=== PATIENT | female | born 1950 | race Caucasian/White ===

== ENCOUNTER → 2018-02-11 | Outpatient (CLI) | payer BC ==
[~2018-02-11] MED LIST: ALAW0.02 EACH EYE; ARTH650T6 PO; ATOR20TA15 PO; FE FCAP PO; FE FCAP2 PO; FOLI1TAB6 PO; FURO1TAB93 PO; HYDR200T3 PO; LEVA750T9 PO; LEVO.1 PO; LISI-363 PO; LISI-515 PO; MELO15 PO; METH2.5T PO; METO5TAB PO; OMEP40CA2 PO; PLAQ200T PO; PRED1SUS EACH EYE; PRED2.5T PO; PROM25TA10 PO; PROM25TA5 PO; PROV10TA PO; REGL5TAB PO; THERSOL2 EACH EYE; TRAM50 PO; TRAM50TA PO
--- NOTE | 2018-02-11 12:16 | EKG ---
Date Performed: 02/11/2018 Time Performed: 10:06:06 PTAGE: 67 years EKG: Sinus rhythm . Inferior infarct - age undetermined Possible anterior infarct - age undetermined Low QRS voltages i n precordial leads Abnormal ECG PREVIOUS TRACING : 04/08/2016 20.41 DOCTOR: Dagoberto Headley Interpretating Date/Time 02/11/2018 12:15:53
== END ==
LOC: HCAV 09:57
PROVIDERS: ATTEND Internal Medicine
DX: Z01.810 Encounter for preprocedural cardiovascular examination (principal)
CPT/HCPCS: 93005

== ENCOUNTER 2018-02-16 12:30 | Inpatient (IN) | payer BC, MEDICARE ==
[~2018-02-16] VITALS: Ht 151.1 cm; Wt 77.9 kg
[~2018-02-16 12:30] MED LIST changes: -ASPI81TA23 PO; -FE FCAP2 PO; -FURO1TAB93 PO; -HYDR200T3 PO; -LEVA750T9 PO; -LISI-363 PO; -MELO15 PO; -METO5TAB PO; -PROM25TA5 PO; -TRAM50 PO
[2018-02-23] MEDS ORDERED: CHLORHEXIDINE GLUCONATE 2 % 1 PACK (2 CLOTHS) TOPICAL PRN (10:45)
[2018-02-23] MEDS ORDERED: SODIUM CHLORID 0.9% 500 ML IV PRN (10:45)
[2018-02-23] MEDS ORDERED: VANCOMYCIN 1000 MG/NS 250 ML (for <70 kg) IV SCH ×2 (10:45)
[2018-02-23] MEDS ORDERED: METOPROLOL TARTRATE 25 MG TAB PO PRN (10:45)
[2018-02-23] MEDS ORDERED: ceFAZolin 2 GM PREMIX 50 ML IV SCH (10:45)
[2018-02-23] MEDS ORDERED: CHLORHEXIDINE GLUCONATE 4% SOLN 120 ML BTL TOPICAL SCH (10:45)
[2018-02-23] MEDS ORDERED: LACTATED RINGER'S 1000 ML IV PRN (10:45)
[2018-02-23] MEDS ORDERED: POVIDONE IODINE 5% (ANTISEPSIS KIT) 4 APPLICATIONS EACH NARE PRN (10:45)
[2018-02-23] MEDS ORDERED: ROPIVACAINE PERI-ARTICULAR INJECTION. P-ARTICULR SCH ×5 (11:00)
[2018-02-23] MEDS ORDERED: BUPIVACAINE LIPOSOME PF 1.3% 20 ML VIAL ONE (11:16)
[2018-02-23 11:34] VITALS: PULSE 79
[2018-02-23] MEDS ORDERED: MIDAZOLAM HCL 2 MG/2 ML VIAL ONE (11:43)
[2018-02-23] MEDS ORDERED: APREPITANT 40 MG CAP ONE (11:43)
[2018-02-23] MEDS ORDERED: FAMOTIDINE 20 MG/2 ML VIAL ONE (11:44)
[2018-02-23] MEDS ORDERED: DEXAMETHASONE SOD PHOS 4 MG/ML VIAL IV ONE (12:00)
[2018-02-23] MEDS ORDERED: ePHEDrine/NS 25 MG/5 ML SYRINGE IV ONE (12:00)
[2018-02-23] MEDS ORDERED: ceFAZolin INJ 1,000 MG VIAL IV ONE ×2 (12:00→14:35)
[2018-02-23] MEDS ORDERED: SUCCINYLCHOLINE CHLORIDE 100 MG/5 ML SYRINGE IV PUSH ONE (12:00)
[2018-02-23] MEDS ORDERED: PROPOFOL 200 MG/20 ML AMP IV ONE (12:00)
[2018-02-23] MEDS ORDERED: LIDOCAINE HCL 1% PF 5 ML SYRINGE OTHER ONE (12:00)
[2018-02-23] MEDS ORDERED: ONDANSETRON HCL 4 MG/2 ML VIAL IV ONE (12:00)
[2018-02-23] MEDS ORDERED: ROCURONIUM INJ 50 MG/5 ML SYRINGE IV PUSH ONE (12:00)
[2018-02-23] MEDS ORDERED: MIDAZOLAM HCL 2 MG/2 ML VIAL IV ONE (12:15)
[2018-02-23] MEDS ORDERED: APREPITANT 40 MG CAP PO SCH (12:15)
[2018-02-23] MEDS ORDERED: FAMOTIDINE 20 MG/2 ML VIAL IV ONE (12:15)
[2018-02-23] MEDS ORDERED: GENTAMICIN SULFATE 80 MG/2 ML VIAL ONE (12:38)
[2018-02-23] MEDS ORDERED: KETAMINE HCL 500 MG/10 ML VIAL ONE (14:25)
[2018-02-23] MEDS ORDERED: DO NOT ADM ANY ANTICOAGULANT DRUGS PRN (15:32)
--- NOTE | 2018-02-23 15:36 | HHI.PR ---
Immediate Post Op Note Procedure Date: February 23, 2018 Pre Op Diagnosis: R Knee OA,Genu Varus Deformity Post Op Diagnosis: Same Surgeon: Emeterio Garrido MD Assurance Officer(s): Elena Lee PA-C Procedure: R TKR Complications: None Specimen(s) removed: None Estimated blood loss: 20cc Anesthesia: General, Regional Block, Local Drains: Hemovac Tourniquet time (min at mmHg) 54 mins @ 250 mmHg Patient to: PACU Patient Condition: Good Implant/Devices: SEE IMPLANT LOG (if applicable) Date/Time of Procedure: SEE SURGICAL CARE RECORD Emeterio Garrido MD February 23, 2018 15:36
[2018-02-23] MEDS ORDERED: ARTIFICIAL TEARS OPTH SOLN 15 ML BTL EACH EYE PRN (15:45)
[2018-02-23] MEDS ORDERED: Post-op Orders (for Pharmacy) XX ONE (15:45)
[2018-02-23] MEDS ORDERED: ZOLPIDEM TARTRATE 5 MG TAB PO PRN (15:45)
[2018-02-23] MEDS ORDERED: ALUMINUM/MAGNESIUM/SIMETH 30 ML CUP PO PRN (15:45)
[2018-02-23] MEDS ORDERED: traMADol HCL 50 MG TAB PO PRN ×2 (15:45)
[2018-02-23] MEDS ORDERED: ONDANSETRON HCL 4 MG/2 ML VIAL IVP PRN (15:45)
[2018-02-23] MEDS ORDERED: HYDROmorphone HCL PF 2 MG/ML VIAL IV PUSH PRN (15:45)
[2018-02-23] MEDS ORDERED: OLOPATADINE HCL 0.1% OPHT SOLN 5 ML BTL EACH EYE PRN (15:45)
[2018-02-23] MEDS ORDERED: prednisoLONE ACETATE 1% OPHT SUSP 5 ML BTL EACH EYE PRN (15:45)
--- NOTE | 2018-02-23 15:48 | MP ---
cc: Emeterio Garrido MD Gilles Fay DATE OF OPERATION: 02/23/2018 PREOPERATIVE DIAGNOSES: 1. Right knee severe tricompartment osteoarthritis. 2. Right knee genu varus deformity. POSTOPERATIVE DIAGNOSES: 1. Right knee severe tricompartment osteoarthritis. 2. Right knee genu varus deformity. PROCEDURE PERFORMED: Right total knee arthroplasty - cemented Bi[employer]-V[employer]. SURGEON: Emeterio Garrido MD TIER IN: Elena Lee PA-C TOURNIQUET TIME: 54 minutes at 250 mmHg. ANESTHESIA: General, adductor canal regional block, intraarticular block. ESTIMATED BLOOD LOSS: 20 mL. DRAIN: One. COMPLICATIONS: None. SPECIMENS: None. My assistant community manager, Elena Lee PA-C, was present for the entire surgical case. She was medically necessary for the entire case because of the complexity of the case and to facilitate the performance of the procedure. The HADOOP SOFTWARE ENGINEER was at the back table and not of skill-set for this case to manipulate the instruments, e.g., the multiple different types of soft tissue retractors, trial implants, and also permanent implants. DESCRIPTION OF PROCEDURE: The patient was brought in the operating room, had satisfactory anesthesia by the Department of Anesthesia. Right lower extremity was prepped and draped in the usual sterile manner. The extremity was exsanguinated by elevation and tourniquet was inflated to 250 mmHg. A small anterior exposure to the knee was made. Paramedian capsulotomy performed. The patient was found to have significant effusion in the knee with chondrocalcinosis and severe tricompartment osteoarthritis with a severe genu varus deformity. The remaining portions of the medial and lateral menisci were removed. The prepatellar fat pad was excised. The anterior cruciate ligament was already deficient. The posterior cruciate ligament was preserved. Using the Biomet-Vanguard total knee arthroplasty system, IM guide was used for the distal femur as a 5 degree valgus cut. This was to accept a 60 femoral component. Extramedullary guide was used for the proximal tibia. This was to accept a 71 tibial component. A 10 mm insert. Appropriate balancing of flexion and extension was performed. It was found to be satisfactory. Undersurface of the patella was removed to accept a 28 mm patellar prosthesis. All trial components were removed and preparation for cementing was made. Two packages of Palacos bone cement was used. First, the tibial component was cemented, which is a 71 tibial component, followed by the femoral component, which is a 60 femoral component, and then a 28 mm 3-prong polyethylene plastic component. All excess bone cement was removed. The bone cement allowed to harden for 11 minutes. The knee was irrigated with 4000 mL of sterile saline antibiotic solution. The knee was injected with 100 mL of local anesthesia provided by the Department of Pharmacy. A 10 x 71 polyethylene plastic "lipped" was then used for the polyethylene plastic with the appropriate clipping mechanism to the tibial tray. Tourniquet was deflated. All bleeders were coagulated. Wound itself was dry. It was closed over a 1/8 inch Hemovac drain. The capsule and the quadriceps mechanism were repaired using multiple interrupted #2 Ti-Cron sutures, subcuticular layers with 0 Vicryl, 2-0 Vicryl, and skin was approximated with skin aashish. Sterile dressings were applied. The patient tolerated the procedure well and went to the recovery room in stable and satisfactory condition. MD ARUNA Martinez/JAKE , 03:26 PM , 03:48 PM
[2018-02-23] MEDS ORDERED: TRAM50TA PO (15:49)
[2018-02-23] MEDS ORDERED: ASPI81TA23 PO (15:50)
[2018-02-23] MEDS ORDERED: WALKER WHEELS/F1 MIS (15:51)
[2018-02-23] MEDS: LACTATED RINGER'S 1000 ML INJ 1,000 ML IV SCH (16:00)
[2018-02-23] MEDS ORDERED: PROMETHAZINE HCL 25 MG TAB PO PRN (16:00)
--- NOTE | 2018-02-23 16:49 | RADRPT ---
EXAM DATE/TIME: 02/23/2018 16:00 [place] COMPARISON: No previous studies available for comparison. INDICATIONS : Post operative right knee. MEDICAL HISTORY : None. SURGICAL HISTORY : None. ENCOUNTER: Initial ACUITY: 1 day PAIN SCORE: Non-responsive. LOCATION: Right Knee. FINDINGS: 3 images have been submitted. There is total knee prosthesis. The prosthetic components appear well-p laced. There is a suprapatellar drain. Air seen in the soft tissues which is not an unexpected findin g following surgery. Skin aashish are seen in the midline. CONCLUSION: Good placement of a total knee prosthesis. Arie Singer MD on February 23, 2018 at 16:46 Board Certified Radiologist. This report was verified electronically.
--- NOTE | 2018-02-23 17:28 | PD.CONS ---
HPI Service [facility] Consult Requested By Primary Care Physician Gilles Fay MD Diagnoses: History of Present Illness Mrs. Rinaldi is a 67-year-old female. She is admitted for a right total knee arthroplasty. She is seen postop and is lethargic and unable to provide much history. Review of past medical records shows a history of lupus and endometrial cancer. No acute complaints are present when seen. She is not nauseous. She has good pain relief. No other complaints when seen. Review of Systems Respiratory: DENIES: Cough, Wheezing, Shortness of breath Cardiovascular: DENIES: Chest pain, Palpitations, Syncope Musculoskeletal: COMPLAINS OF: Joint pain, Muscle aches, Stiffness, Joint Swelling Except as stated in HPI: all other systems reviewed are Neg Past Family Social History Allergies: Coded Allergies: Fish Containing Products (Unverified Allergy, Severe, HIVES, 02/16/18) alcohol (Unverified Allergy, Severe, HIVES, 02/16/18) shellfish derived (Unverified Allergy, Severe, HIVES, 02/16/18) tetanus toxoid, adsorbed (Unverified Allergy, Mild, 02/16/18) hydrocodone (Verified Adverse Reaction, Severe, HALLUCINATIONS, 02/23/18) morphine (Verified Adverse Reaction, Intermediate, SEVERE NAUSEA, 02/23/18) oxycodone (Verified Adverse Reaction, Mild, VOMITING, 02/23/18) Uncoded Allergies: LIQUOR (Allergy, Severe, BODY TURNS RED, 02/16/18) Past Medical History Hypothyroidism Hypertension Gastroparesis Osteoarthritis Lupus History of endometrial cancer Raynaud's disease Varicose veins Sjogrens Disease Past Surgical History Adenoidectomy Reported Medications Reported Meds & Active Scripts Active Aspirin EC (Aspirin) 81 Mg Tabdr 81 Mg PO BID 28 Days Tramadol (Tramadol HCl) 50 Mg Tab 50-100 Mg PO Q6H PRN Reported Phenergan (Promethazine HCl) 25 Mg Tablet 25 Mg PO Q6H PRN Tramadol (Tramadol HCl) 50 Mg Tab 50 Mg PO Q6H PRN Arthritis Pain Reliever ER 8 HR (Acetaminophen) 650 Mg Tab 650 Mg PO Q8HR PRN Theratears Unit-Dose Opth Drops (Carboxymethylcellulose Sodium Opth Drops) 0.25 % Soln 1 Drop EACH EYE Q4H PRN Pred Forte Opth 1% (Prednisolone Acetate Opth 1%) 1% Susp 1 Drop EACH EYE BID PRN [place] Opth Drops (Ketotifen Opth Drops) 0.025% Drops 1 Drop EACH EYE Q6H PRN Atorvastatin (Atorvastatin Calcium) 20 Mg Tab 20 Mg PO HS Folic Acid 1 Mg Tablet 1 Mg PO HS Methotrexate 2.5 Mg Tab 10 Mg PO FRIDAY Integra (Multi-Vit/Iron-B Comp-Vit C) 62.5-62.5-40-3 mg Cap 1 Cap PO DAILY Lisinopril 20 Mg Tab 20 Mg PO DAILY Provera (Medroxyprogesterone Acetate) 10 Mg Tab 20 Mg PO BID Start day 21 Omeprazole 40 Mg Cap 40 Mg PO DAILY Synthroid (Levothyroxine Sodium) 100 Mcg Tab 100 Mcg PO DAILY Prednisone 2.5 Mg Tab 2.5 Mg PO DAILY Plaquenil (Hydroxychloroquine Sulfate) 200 Mg Tab 200 Mg PO BID Take with food Reglan (Metoclopramide HCl) 5 Mg Tab 5 Mg PO BID Active Ordered Medications Administered Medications Medications (Trade) Dose Ordered Sig/Adam Route PRN Reason Start Time Stop Time Status Last Admin Dose Admin Lactated Ringer's 1,000 ml @ 30 mls/hr Q24H PRN IV SEE LABEL COMMENTS 02/23/18 10:45 02/26/18 10:44 02/23/18 11:30 Chlorhexidine Gluconate (Chlorhexidine 2% Cloth) 3 pack MOTOR SETTER PRN TOPICAL SEE LABEL COMMENTS 02/23/18 10:45 02/26/18 10:44 02/23/18 10:50 Chlorhexidine Gluconate (Hibiclens 4% Top Soln) 1 applic ONCE TOPICAL 02/23/18 10:45 02/26/18 10:44 02/23/18 11:15 Vancomycin HCl 1000 mg/Sodium Chloride 250 ml @ 250 mls/hr MOTOR SETTER IV 02/23/18 10:45 02/26/18 10:44 02/23/18 13:09 Fentanyl Citrate (fentaNYL INJ) 50 mcg MOTOR SETTER IV 02/23/18 12:15 02/23/18 23:00 02/23/18 13:10 Lactated Ringer's 1,000 ml @ 80 mls/hr [id number] IV 02/23/18 15:35 02/23/18 16:00 Family History Unable to obtain, patient is lethargic Social History Unable to obtain, patient is lethargic Physical Exam Vital Signs Vital Signs Date Time Temp Pulse Resp B/P (MAP) Pulse Ox O2 Delivery O2 Flow Rate FiO2 02/23/18 16:45 83 13 149/75 (99) 99 02/23/18 16:30 84 13 160/70 (100) 99 02/23/18 16:15 84 17 154/69 (97) 100 02/23/18 16:00 86 17 157/70 (99) 100 02/23/18 15:45 87 14 162/71 (101) 100 Nasal Cannula 2 02/23/18 15:38 97.6 88 18 165/75 (105) 100 Nasal Cannula 2 02/23/18 11:39 98.5 78 20 155/69 (97) 100 02/23/18 11:35 100 Nasal Cannula 2 02/23/18 11:34 79 Physical Exam GENERAL: This is a well-nourished, well-developed patient, in no apparent distress. SKIN: No rashes, ecchymoses or lesions. Cool and dry. HEAD: Atraumatic. Normocephalic. No temporal or scalp tenderness. EYES: Pupils equal round and reactive. Extraocular motions intact. No scleral icterus. No injection or drainage. ENT: Nose without bleeding, purulent drainage or septal hematoma. Throat without erythema, tonsillar hypertrophy or exudate. Uvula midline. Airway patent. NECK: Trachea midline. No JVD or lymphadenopathy. Supple, nontender, no meningeal signs. CARDIOVASCULAR: Regular rate and rhythm without murmurs, gallops, or rubs. RESPIRATORY: Clear to auscultation. Breath sounds equal bilaterally. No wheezes , rales, or rhonchi. GASTROINTESTINAL: Abdomen soft, non-tender, nondistended. No hepato-splenomegaly , or palpable masses. No guarding. MUSCULOSKELETAL: Extremities without clubbing, cyanosis, or edema. No joint tenderness, effusion, or edema noted. No calf tenderness. Negative Homans sign bilaterally. NEUROLOGICAL: Awake and alert. Cranial nerves II through XII intact. Motor and sensory grossly within normal limits. Five out of 5 muscle strength in all muscle groups. Normal speech. Imaging Last Impressions Knee X-Ray 02/23/18 9539 Signed Impressions: Service Date/Time: Friday, February 23, 2018 16:00 - CONCLUSION: Good placement of a total knee prosthesis. Arie Singer MD Assessment and Plan Problem List: (1) Osteoarthritis of right knee ICD Code: M17.11 - Unilateral primary osteoarthritis, right knee Assessment and Plan 67-year-old female status post right knee arthroplasty Status post right knee arthroplasty Osteo-arthritis of right knee Continue pain treatments Orthopedic surgeons following Monitor vital signs Follow H&H in morning Physical therapy Hypertension Continue baseline treatment Follow blood pressures Adjust treatments as needed Hypothyroidism History of endometrial cancer Follows an outpatient Gastroparesis Raynaud's disease Sjogrens Disease Lupus Follow clinically for any exacerbations DVT prophylaxis Per surgical recommendations Problem Qualifiers (1) Osteoarthritis of right knee: Qualified Codes: M17.11 - Unilateral primary osteoarthritis, right knee Zay Houston MD February 23, 2018 17:28
[2018-02-23] MEDS ORDERED: *ONDANSETRON 4 MG VIAL PERIprocedural Use ONLY ONE (18:55)
[2018-02-23 20:35] VITALS: BP 119/58; PULSE 84; RESP 16; TEMP 98.1; O2SAT 100
[2018-02-23] MEDS: HYDROXYCHLOROQUINE SULFATE 200 MG TAB PO SCH (21:00)
[2018-02-23] MEDS: medroxyPROGESTERone ACETATE 10 MG TAB PO SCH (21:00)
[2018-02-23] MEDS: ATORVASTATIN 20 MG TAB PO SCH (21:00)
[2018-02-23] MEDS: METOCLOPRAMIDE HCL 10 MG TAB PO SCH (21:00)
[2018-02-23] MEDS: ACETAMINOPHEN 325 MG TAB PO PRN (23:33)
[2018-02-23] MEDS: ASPIRIN EC 81 MG TABEC PO SCH (23:34)
[2018-02-24] VITALS (7 sets, daily range): BP systolic 121–158; BP diastolic 61–72; PULSE 77–104; RESP 16–18; TEMP 97.6–98.6; O2SAT 90–100
[2018-02-24] MEDS: LACTATED RINGER'S 1000 ML INJ 1,000 ML IV SCH ×2 (04:05→16:35)
[2018-02-24 05:20] LABS: HEMATOCRIT 21.2 % (35.0-46.0); HEMOGLOBIN 7.3 GM/DL (11.6-15.3)
[2018-02-24] MEDS: LEVOTHYROXINE SODIUM 100 MCG TAB PO SCH (06:06)
--- NOTE | 2018-02-24 07:15 | PD.ORT.PN ---
Subjective Subjective Remarks POD # 1 R TKR C/O post op pain No sob;no chest pain Objective Vitals Vital Signs Date Time Temp Pulse Resp B/P (MAP) Pulse Ox O2 Delivery O2 Flow Rate FiO2 02/24/18 00:30 98.1 77 18 158/72 (100) 98 02/23/18 20:35 98.1 84 16 119/58 (78) 100 02/23/18 19:11 78 16 118/58 (78) 100 Nasal Cannula 2 02/23/18 19:00 76 17 118/59 (78) 100 Nasal Cannula 2 02/23/18 18:45 76 14 113/50 (71) 100 Nasal Cannula 2 02/23/18 18:35 97.8 87 22 131/59 (83) 97 Nasal Cannula 2 02/23/18 18:30 77 12 113/50 (71) 100 02/23/18 18:00 78 12 143/57 (85) 99 02/23/18 17:00 81 16 141/66 (91) 99 02/23/18 16:45 83 13 149/75 (99) 99 02/23/18 16:30 84 13 160/70 (100) 99 02/23/18 16:15 84 17 154/69 (97) 100 02/23/18 16:00 86 17 157/70 (99) 100 02/23/18 15:45 87 14 162/71 (101) 100 Nasal Cannula 2 02/23/18 15:38 97.6 88 18 165/75 (105) 100 Nasal Cannula 2 02/23/18 11:39 98.5 78 20 155/69 (97) 100 02/23/18 11:35 100 Nasal Cannula 2 02/23/18 11:34 79 I/O 02/23/18 02/23/18 02/23/18 02/24/18 02/24/18 02/24/18 07:00 15:00 23:00 07:00 15:00 23:00 Intake Total 239 ml Output Total 150 ml Balance 89 ml Intake IV Total 239 ml Output Drainage Total 150 ml Result Diagram: 02/24/18 0355 Imaging Last 24 hours Impressions Knee X-Ray 02/23/18 1535 Signed Impressions: Service Date/Time: Friday, February 23, 2018 16:00 - CONCLUSION: Good placement of a total knee prosthesis. Arie Singer MD Objective Remarks N/V intact Dressings dry No calf tenderness;neg handy's Assessment & Plan Assessment and Plan Ortho stable PT/Rehab Aspirin EC 81 mg BID x 4 weeks for DVT/PE prophylaxsis Eemterio Garrido MD February 24, 2018 07:15
[2018-02-24] MEDS: medroxyPROGESTERone ACETATE 10 MG TAB PO SCH ×2 (08:36→21:50)
[2018-02-24] MEDS: ASPIRIN EC 81 MG TABEC PO SCH ×2 (08:37→21:50)
[2018-02-24] MEDS: PANTOPRAZOLE SOD 40 MG DELAYED RELEASE TAB PO SCH (08:38)
[2018-02-24] MEDS: METOCLOPRAMIDE HCL 10 MG TAB PO SCH ×2 (08:38→21:50)
[2018-02-24] MEDS: ACETAMINOPHEN 325 MG TAB PO PRN (08:39)
--- NOTE | 2018-02-24 09:39 | HHI.PR ---
Subjective Remarks Follow-up for right TKA, anemia, hypertension. Patient reports her right knee pain is bearable for now. She is requesting decreased doses of her tramadol. She wants only 25 mg for mild pain and 50 mg for severe pain. She reports her last bowel movement was 3 days ago on Friday. She is requesting MiraLAX. She states she had an episode last night where she became nauseous, lightheaded , and diaphoretic when she tried to ambulate from bed to the commode, required assistance back to bed. She denies any loss of consciousness. She states she feels back to normal today without any lightheadedness, dizziness, or nausea. Denies any chest pain or shortness of breath. She has no other medical complaints at this time. Objective Vitals Vital Signs Date Time Temp Pulse Resp B/P (MAP) Pulse Ox O2 Delivery O2 Flow Rate FiO2 02/24/18 08:00 98.0 81 16 126/61 (82) 100 02/24/18 04:50 98.0 85 17 121/67 (85) 99 02/24/18 00:30 98.1 77 18 158/72 (100) 98 02/23/18 20:35 98.1 84 16 119/58 (78) 100 02/23/18 19:11 78 16 118/58 (78) 100 Nasal Cannula 2 02/23/18 19:00 76 17 118/59 (78) 100 Nasal Cannula 2 02/23/18 18:45 76 14 113/50 (71) 100 Nasal Cannula 2 02/23/18 18:35 97.8 87 22 131/59 (83) 97 Nasal Cannula 2 02/23/18 18:30 77 12 113/50 (71) 100 02/23/18 18:00 78 12 143/57 (85) 99 02/23/18 17:00 81 16 141/66 (91) 99 02/23/18 16:45 83 13 149/75 (99) 99 02/23/18 16:30 84 13 160/70 (100) 99 02/23/18 16:15 84 17 154/69 (97) 100 02/23/18 16:00 86 17 157/70 (99) 100 02/23/18 15:45 87 14 162/71 (101) 100 Nasal Cannula 2 02/23/18 15:38 97.6 88 18 165/75 (105) 100 Nasal Cannula 2 02/23/18 11:39 98.5 78 20 155/69 (97) 100 02/23/18 11:35 100 Nasal Cannula 2 02/23/18 11:34 79 I/O 02/23/18 02/23/18 02/23/18 02/24/18 02/24/18 02/24/18 07:00 15:00 23:00 07:00 15:00 23:00 Intake Total 239 ml 480 ml Output Total 150 ml Balance 89 ml 480 ml Intake Oral 480 ml IV Total 239 ml Output Drainage Total 150 ml # Voids 1 # Bowel Movements 0 Result Diagram: 02/24/18 0355 Imaging Last Impressions Knee X-Ray 02/23/18 1535 Signed Impressions: Service Date/Time: Friday, February 23, 2018 16:00 - CONCLUSION: Good placement of a total knee prosthesis. Arie Singer MD Objective Remarks GENERAL: Well-nourished, well-developed female patient in [facility]. SKIN: Warm and dry. No rash. HEENT: Normocephalic. Atraumatic. Pupils equal and round. Mucous membranes pink and moist. CARDIOVASCULAR: Regular rate and rhythm. No murmur appreciated. RESPIRATORY: No accessory muscle use. Clear to auscultation. Breath sounds equal bilaterally. GASTROINTESTINAL: Abdomen soft, non-tender, nondistended. Normoactive bowel sounds x4. MUSCULOSKELETAL: No obvious deformities. Extremities without clubbing, cyanosis , or edema. Right knee surgical dressing in place, CDI. NEUROLOGICAL: Awake and alert. No obvious cranial nerve deficits. Motor grossly within normal limits. Moving all extremities spontaneously. Normal speech. PSYCHIATRIC: Appropriate mood and affect; insight and judgment normal. Procedures 02/23/18 right total knee arthroplasty with Dr. Emeterio Garrido Medications and IVs Current Medications Medications (Trade) Dose Ordered Sig/Adam Route Start Time Stop Time Status Last Admin Lactated Ringer's 1,000 ml @ 30 mls/hr Q24H PRN IV 02/23/18 10:45 02/26/18 10:44 02/23/18 11:30 Sodium Chloride 500 ml @ 30 mls/hr [id number] PRN IV 02/23/18 10:45 02/26/18 10:44 (Lopressor) 25 mg ACCOUNT DEVELOPMENT EXECUTIVE PRN PO 02/23/18 10:45 02/26/18 10:44 (Betadine 5% Antisepsis Kit) 1 applic ACCOUNT DEVELOPMENT EXECUTIVE PRN EACH NARE 02/23/18 10:45 02/26/18 10:44 (Chlorhexidine 2% Cloth) 3 pack ACCOUNT DEVELOPMENT EXECUTIVE PRN TOPICAL 02/23/18 10:45 02/26/18 10:44 02/23/18 10:50 (Hibiclens 4% Top Soln) 1 applic ONCE TOPICAL 02/23/18 10:45 02/26/18 10:44 02/23/18 11:15 Cefazolin Sodium/ Dextrose 50 ml @ 100 mls/hr ACCOUNT DEVELOPMENT EXECUTIVE IV 02/23/18 10:45 02/26/18 10:44 Vancomycin HCl 1000 mg/Sodium Chloride 250 ml @ 250 mls/hr ACCOUNT DEVELOPMENT EXECUTIVE IV 02/23/18 10:45 02/26/18 10:44 02/23/18 13:09 (Lipitor) 20 mg HS PO 02/23/18 21:00 (Plaquenil) 200 mg BID PO 02/23/18 21:00 02/24/18 10:04 (Synthroid) 100 mcg DAILY@0600 PO 02/24/18 06:00 02/24/18 06:06 (Prinivil) 20 mg DAILY PO 02/24/18 09:00 02/24/18 10:04 (Provera) 20 mg BID PO 02/23/18 21:00 02/24/18 08:36 (Rheumatrex) 10 mg We PO 02/25/18 09:00 (Pred Forte 1% Opth Susp) 1 drop BID PRN EACH EYE 02/23/18 15:45 (Phenergan) 25 mg Q6H PRN PO 02/23/18 16:00 (Tylenol) 650 mg Q8HR PRN PO 02/23/18 15:45 02/24/18 08:39 (Tears Naturale Opth Soln) 1 drop Q4H PRN EACH EYE 02/23/18 15:45 (Patanol 0.1% Opth) 1 drop BID PRN EACH EYE 02/23/18 15:45 (Reglan) 5 mg BID PO 02/23/18 21:00 02/24/18 08:38 (Theragran) 1 tab DAILY PO 02/24/18 09:00 5/8/18 10:04 (Protonix) 40 mg DAILY PO 02/24/18 09:00 02/24/18 08:38 (Deltasone) 2.5 mg DAILY PO 02/24/18 09:00 02/24/18 10:04 Lactated Ringer's 1,000 ml @ 80 mls/hr [id number] IV 02/23/18 15:35 02/23/18 16:00 (Dilaudid Pf Inj) 1 mg Q3H PRN IV PUSH 02/23/18 15:45 (Ultram) 50 mg Q4H PRN PO 02/23/18 15:45 (Zofran Inj) 4 mg Q6H PRN IVP 02/23/18 15:45 02/23/18 22:30 (Mag-Al Plus Susp Liq) 30 ml Q6H PRN PO 02/23/18 15:45 (Ambien) 5 mg HS PRN PO 02/23/18 15:45 (Ecotrin Ec) 81 mg BID PO 02/23/18 21:00 02/24/18 08:37 ([facility] [place] [facility] ALL NURSING DEPARTME... UNSCH PRN .XX 02/23/18 15:32 02/24/18 15:31 (Ultram) 25 mg Q4H PRN PO 02/24/18 10:00 A/P Problem List: (1) Osteoarthritis of right knee ICD Code: M17.11 - Unilateral primary osteoarthritis, right knee Assessment and Plan 67-year-old female status post right knee arthroplasty. Hospitalist consulted for medical management. Osteoarthritis status post right total knee arthroplasty: surgery done on 02/[address] Emeterio Garrido. Continue pain control with Tramadol prn Orthopedic surgeons following Monitor vital signs Physical therapy DVT prophylaxis per ortho, on aspirin 81mg bid Anemia: Hgb 7.3 today. Patient reports long history of chronic anemia. Drop likely secondary to surgery. Records reviewed, patient had iron studies in 2008 indicating chronic iron deficiency. check iron studies, ferritin, folate, B12 Repeat CBC in am start on ferrous sulfate bid Hypertension Continue home meds including lisinopril 20mg daily Follow blood pressures, Adjust treatments as needed Hypothyroidism History of endometrial cancer Chronic, stable. Continue outpatient f/up. Gastroparesis Raynaud's disease Sjogrens Disease Lupus Follow clinically for any exacerbations Restart home meds. DVT prophylaxis Per surgical recommendations Problem Qualifiers (1) Osteoarthritis of right knee: Qualified Codes: M17.11 - Unilateral primary osteoarthritis, right knee Sally Payan PA-C February 24, 2018 9:38 am
[2018-02-24] MEDS: MULTIVITAMIN TAB PO SCH (10:04)
[2018-02-24] MEDS: HYDROXYCHLOROQUINE SULFATE 200 MG TAB PO SCH ×2 (10:04→21:50)
[2018-02-24] MEDS: LISINOPRIL 20 MG TAB PO SCH (10:04)
[2018-02-24] MEDS: predniSONE 5 MG TAB PO SCH (10:04)
[2018-02-24] MEDS: POLYETHYLENE GLYCOL 17 GM PKG PO SCH (14:19)
[2018-02-24] MEDS: FERROUS SULFATE 325 MG (65 MG ELEMENTAL IRON) TAB PO SCH ×2 (14:19→22:00)
[2018-02-24 14:24] LABS: IRON (FE) 11 MCG/DL (50-170)
[2018-02-24 14:50] LABS: % SATURATION IRON PROFILE 5.1 % (20-50); FERRITIN 236 NG/ML (8-252); TOTAL IRON BINDING CAPACITY 216 MCG/DL (250-450)
[2018-02-24 14:55] LABS: FOLATE GREATER THAN 20.0 NG/ML (3.1-17.5)
[2018-02-24] MEDS: traMADol HCL 50 MG TAB PO PRN ×2 (17:25→21:50)
[2018-02-24 18:40] LABS: AUTOMATED NEUTROPHIL # 7.9 TH/MM3 (1.8-7.7); BASOPHIL % 0.3 % (0.0-2.0); EOSINOPHIL % 0.5 % (0.0-4.0); HEMOGLOBIN 7.7 GM/DL (11.6-15.3); LYMPH % 2.9 % (9.0-44.0); LYMPHOCYTE # 0.3 TH/MM3 (1.0-4.8); MEAN CELL VOLUME 91.4 FL (80.0-100.0); MEAN CORPUSCULAR HEMOGLOBIN 31.9 PG (27.0-34.0); MEAN CORPUSCULAR HGB CONC 34.9 % (32.0-36.0); MEAN PLATELET VOLUME 7.6 FL (7.0-11.0); MONO % 10.7 % (0.0-8.0); NEUT % 85.6 % (16.0-70.0); PLATELET COUNT 228 TH/MM3 (150-450); RED CELL DISTRIBUTION WIDTH 14.9 % (11.6-17.2); WHITE BLOOD COUNT 9.2 TH/MM3 (4.0-11.0)
[2018-02-24 18:53] LABS: BICARBONATE 20.9 MEQ/L (21.0-32.0); CALCIUM 8.4 MG/DL (8.5-10.1)
[2018-02-24] MEDS: ATORVASTATIN 20 MG TAB PO SCH (21:50)
[2018-02-25] VITALS (10 sets, daily range): BP systolic 98–143; BP diastolic 54–72; PULSE 75–98; RESP 17–18; TEMP 97.6–99.4; O2SAT 98–100
[2018-02-25] MEDS: ACETAMINOPHEN 325 MG TAB PO PRN ×2 (03:54→13:40)
[2018-02-25] MEDS: LACTATED RINGER'S 1000 ML INJ 1,000 ML IV SCH ×2 (05:05→17:35)
[2018-02-25] MEDS: LEVOTHYROXINE SODIUM 100 MCG TAB PO SCH (06:14)
--- NOTE | 2018-02-25 07:23 | PD.ORT.PN ---
Subjective Subjective Remarks pt is doing well with the knee does complain of constipation and requesting milk of magnesia and glycerin supp. hx of anemia pre-op, denies any lightheadedness, dizziness Objective Vitals Vital Signs Date Time Temp Pulse Resp B/P (MAP) Pulse Ox O2 Delivery O2 Flow Rate FiO2 02/25/18 00:30 99.4 98 18 121/72 (88) 99 02/24/18 20:15 97.9 104 18 152/72 (98) 93 02/24/18 16:00 97.6 95 16 142/70 (94) 02/24/18 12:00 98.6 91 16 123/69 (87) 94 02/24/18 10:24 90 Nasal Cannula 2.00 02/24/18 08:00 98.0 81 16 126/61 (82) 100 I/O 02/24/18 02/24/18 02/24/18 02/25/18 02/25/18 02/25/18 07:00 15:00 23:00 07:00 15:00 23:00 Intake Total 580 ml 600 ml 480 ml Balance 580 ml 600 ml 480 ml Intake Oral 480 ml 600 ml 480 ml IV Total 100 ml # Voids 1 3 3 # Bowel Movements 0 0 Result Diagram: 02/24/18 1730 02/24/18 1730 Imaging Last 24 hours Impressions Knee X-Ray 02/23/18 1535 Signed Impressions: Service Date/Time: Friday, February 23, 2018 16:00 - CONCLUSION: Good placement of a total knee prosthesis. Arie Singer MD Objective Remarks right knee dressing dry and intact N/V intact No calf tenderness;neg handy's Assessment & Plan Assessment and Plan POD # 2 s/p R TKA Ortho stable PT/Rehab Milk of magnesia and glycerin supp written for patient Aspirin EC 81 mg BID x 4 weeks for DVT/PE prophylaxsis anticipate d/c today to [facility] if accepted or possibly [facility] if labs stable- pending at this time Elena Lee February 25, 2018 07:23
[2018-02-25] MEDS ORDERED: GLYCERIN ADULT 2 GM SUPP RECTAL PRN (07:30)
[2018-02-25] MEDS ORDERED: MAGNESIUM HYDROXIDE SUSP 30 ML CUP PO PRN (07:30)
[2018-02-25 08:01] LABS: AUTOMATED NEUTROPHIL # 5.9 TH/MM3 (1.8-7.7); BASOPHIL # 0.1 TH/MM3 (0-0.2); BASOPHIL % 0.7 % (0.0-2.0); EOSINOPHIL # 0.1 TH/MM3 (0-0.4); LYMPH % 5.4 % (9.0-44.0); LYMPHOCYTE # 0.4 TH/MM3 (1.0-4.8); MEAN CELL VOLUME 90.5 FL (80.0-100.0); MEAN CORPUSCULAR HEMOGLOBIN 30.6 PG (27.0-34.0); MEAN CORPUSCULAR HGB CONC 33.8 % (32.0-36.0); MEAN PLATELET VOLUME 7.4 FL (7.0-11.0); MONO % 14.6 % (0.0-8.0); MONOCYTE # 1.1 TH/MM3 (0-0.9); NEUT % 78.3 % (16.0-70.0); PLATELET COUNT 208 TH/MM3 (150-450); RED BLOOD COUNT 2.17 MIL/MM3 (4.00-5.30); RED CELL DISTRIBUTION WIDTH 14.6 % (11.6-17.2); WHITE BLOOD COUNT 7.6 TH/MM3 (4.0-11.0)
[2018-02-25 08:13] LABS: HEMOGLOBIN 6.6 GM/DL (11.6-15.3)
[2018-02-25 08:14] LABS: HEMATOCRIT 19.6 % (35.0-46.0)
[2018-02-25 08:25] LABS: BICARBONATE 21.9 MEQ/L (21.0-32.0); CALCIUM 7.9 MG/DL (8.5-10.1); CREATININE 0.9 MG/DL (0.50-1.00)
[2018-02-25] MEDS ORDERED: SODIUM CHLOR 0.9% 250 ML INJ 250 ML IV ONE (08:30)
[2018-02-25] MEDS: METOCLOPRAMIDE HCL 10 MG TAB PO SCH ×2 (08:55→19:59)
[2018-02-25] MEDS: PANTOPRAZOLE SOD 40 MG DELAYED RELEASE TAB PO SCH (08:55)
[2018-02-25] MEDS: MULTIVITAMIN TAB PO SCH (08:55)
[2018-02-25] MEDS: ASPIRIN EC 81 MG TABEC PO SCH ×2 (08:55→20:00)
[2018-02-25] MEDS ORDERED: METHOTREXATE 2.5 MG TAB PO SCH (09:00)
--- NOTE | 2018-02-25 09:30 | HHI.PR ---
Subjective Remarks Follow up for right TKA, anemia, HTN. The patient reports pain is improved today. Hgb dropped to 6.6 today. Patient denies any lightheadedness, dizziness, chest pain, or shortness of breath. Still no BM since a few days ago, prior to surgery. Denies any abdominal pain, nausea/vomiting. Tolerating oral intake. Vital signs reviewed and stable. Objective Vitals Vital Signs Date Time Temp Pulse Resp B/P (MAP) Pulse Ox O2 Delivery O2 Flow Rate FiO2 02/25/18 08:00 97.9 88 17 115/65 (82) 99 02/25/18 00:30 99.4 98 18 121/72 (88) 99 02/24/18 20:15 97.9 104 18 152/72 (98) 93 02/24/18 16:00 97.6 95 16 142/70 (94) 02/24/18 12:00 98.6 91 16 123/69 (87) 94 02/24/18 10:24 90 Nasal Cannula 2.00 I/O 02/24/18 02/24/18 02/24/18 02/25/18 02/25/18 02/25/18 06:59 14:59 22:59 06:59 14:59 22:59 Intake Total 680 ml 600 ml 480 ml Balance 680 ml 600 ml 480 ml Intake Oral 480 ml 600 ml 480 ml IV Total 200 ml # Voids 1 3 3 # Bowel Movements 0 0 Result Diagram: 02/25/18 0700 02/25/18 0700 Imaging Last Impressions Knee X-Ray 02/23/18 1535 Signed Impressions: Service Date/Time: Friday, February 23, 2018 16:00 - CONCLUSION: Good placement of a total knee prosthesis. Arie Singer MD Objective Remarks GENERAL: Well-nourished, well-developed female patient in [facility]. SKIN: Warm and dry. No rash. HEENT: Normocephalic. Atraumatic. Pupils equal and round. Mucous membranes pink and moist. CARDIOVASCULAR: Regular rate and rhythm. No murmur appreciated. RESPIRATORY: No accessory muscle use. Clear to auscultation. Breath sounds equal bilaterally. GASTROINTESTINAL: Abdomen soft, non-tender, nondistended. Normoactive bowel sounds x4. MUSCULOSKELETAL: No obvious deformities. Extremities without clubbing, cyanosis , or edema. Right knee surgical dressing in place, CDI. NEUROLOGICAL: Awake and alert. No obvious cranial nerve deficits. Motor grossly within normal limits. Moving all extremities spontaneously. Normal speech. PSYCHIATRIC: Appropriate mood and affect; insight and judgment normal. Procedures 02/23/18 right total knee arthroplasty with Dr. Emeterio Garrido Medications and IVs Current Medications Medications (Trade) Dose Ordered Sig/Adam Route Start Time Stop Time Status Last Admin Lactated Ringer's 1,000 ml @ 30 mls/hr Q24H PRN IV 02/23/18 10:45 02/26/18 10:44 02/23/18 11:30 Sodium Chloride 500 ml @ 30 mls/hr [id number] PRN IV 02/23/18 10:45 02/26/18 10:44 (Lopressor) 25 mg [facility] PRN PO 02/23/18 10:45 02/26/18 10:44 (Betadine 5% Antisepsis Kit) 1 applic [facility] PRN EACH NARE 02/23/18 10:45 02/26/18 10:44 (Chlorhexidine 2% Cloth) 3 pack [facility] PRN TOPICAL 02/23/18 10:45 02/26/18 10:44 02/23/18 10:50 (Hibiclens 4% Top Soln) 1 applic ONCE TOPICAL 02/23/18 10:45 02/26/18 10:44 02/23/18 11:15 Cefazolin Sodium/ Dextrose 50 ml @ 100 mls/hr [facility] IV 02/23/18 10:45 02/26/18 10:44 Vancomycin HCl 1000 mg/Sodium Chloride 250 ml @ 250 mls/hr [facility] IV 02/23/18 10:45 02/26/18 10:44 02/23/18 13:09 (Lipitor) 20 mg HS PO 02/23/18 21:00 02/24/18 21:50 (Plaquenil) 200 mg BID PO 02/23/18 21:00 02/24/18 21:50 (Synthroid) 100 mcg DAILY@0600 PO 02/24/18 06:00 02/25/18 06:14 (Prinivil) 20 mg DAILY PO 02/24/18 09:00 02/24/18 10:04 (Provera) 20 mg BID PO 02/23/18 21:00 02/24/18 21:50 (Rheumatrex) 10 mg We PO 02/25/18 09:00 (Pred Forte 1% Opth Susp) 1 drop BID PRN EACH EYE 02/23/18 15:45 (Phenergan) 25 mg Q6H PRN PO 02/23/18 16:00 (Tylenol) 650 mg Q8HR PRN PO 02/23/18 15:45 02/25/18 03:54 (Tears Naturale Opth Soln) 1 drop Q4H PRN EACH EYE 02/23/18 15:45 (Patanol 0.1% Opth) 1 drop BID PRN EACH EYE 02/23/18 15:45 (Reglan) 5 mg BID PO 02/23/18 21:00 02/25/18 08:55 (Theragran) 1 tab DAILY PO 02/24/18 09:00 02/25/18 08:55 (Protonix) 40 mg DAILY PO 02/24/18 09:00 02/25/18 08:55 (Deltasone) 2.5 mg DAILY PO 02/24/18 09:00 02/24/18 10:04 Lactated Ringer's 1,000 ml @ 80 mls/hr [id number] IV 02/23/18 15:35 02/23/18 16:00 (Dilaudid Pf Inj) 1 mg Q3H PRN IV PUSH 02/23/18 15:45 (Ultram) 50 mg Q4H PRN PO 02/23/18 15:45 (Zofran Inj) 4 mg Q6H PRN IVP 02/23/18 15:45 02/23/18 22:30 (Mag-Al Plus Susp Liq) 30 ml Q6H PRN PO 02/23/18 15:45 (Ambien) 5 mg HS PRN PO 02/23/18 15:45 (Ecotrin Ec) 81 mg BID PO 02/23/18 21:00 02/25/18 08:55 (Ultram) 25 mg Q4H PRN PO 02/24/18 10:00 02/24/18 21:50 (Miralax) 17 gm DAILY PO 02/24/18 11:00 02/24/18 14:19 (Ferrous Sulfate) 325 mg BID@12,17 PO 02/24/18 12:00 02/24/18 22:00 (Milk Of Magnesia Liq) 30 ml DAILY PRN PO 02/25/18 07:30 (Glycerin Adult Supp) 2 gm ONCE PRN RECTAL 02/25/18 07:30 02/25/18 23:00 Sodium Chloride 250 ml @ 15 mls/hr ONCE ONCE IV 02/25/18 08:30 02/26/18 01:09 A/P Problem List: (1) Osteoarthritis of right knee ICD Code: M17.11 - Unilateral primary osteoarthritis, right knee Assessment and Plan 67-year-old female status post right knee arthroplasty. Hospitalist consulted for medical management. Osteoarthritis status post right total knee arthroplasty: surgery done on 02/[address] Emeterio Garrido. Continue pain control with Tramadol prn Orthopedic surgeons following Monitor vital signs Physical therapy DVT prophylaxis per ortho, on aspirin 81mg bid Anemia: Hgb 7.3. Patient reports long history of chronic anemia. Drop likely secondary to surgery. Records reviewed, patient had iron studies in 2008 indicating chronic iron deficiency. iron studies consistent with chronic check iron deficiency anemia, B12 and folate wnl. started on ferrous sulfate bid Hgb dropped to 6.6 today, will give 2u pRBC transfusion repeat CBC in the am Hypertension Continue home meds including lisinopril 20mg daily Follow blood pressures, Adjust treatments as needed Hypothyroidism History of endometrial cancer Chronic, stable. Continue outpatient f/up. Gastroparesis Raynaud's disease Sjogrens Disease Lupus Follow clinically for any exacerbations Restart home meds. DVT prophylaxis Per surgical recommendations Discharge Planning Can likely medically clear for discharge tomorrow if Hgb improves. Problem Qualifiers (1) Osteoarthritis of right knee: Qualified Codes: M17.11 - Unilateral primary osteoarthritis, right knee Sally Payan PA-C February 25, 2018 9:30 am
[2018-02-25] MEDS: LISINOPRIL 20 MG TAB PO SCH (09:53)
[2018-02-25] MEDS: predniSONE 5 MG TAB PO SCH (09:53)
[2018-02-25] MEDS: POLYETHYLENE GLYCOL 17 GM PKG PO SCH (09:53)
[2018-02-25] MEDS: HYDROXYCHLOROQUINE SULFATE 200 MG TAB PO SCH ×2 (09:53→19:59)
[2018-02-25] MEDS: medroxyPROGESTERone ACETATE 10 MG TAB PO SCH ×2 (09:53→20:00)
[2018-02-25] MEDS: FERROUS SULFATE 325 MG (65 MG ELEMENTAL IRON) TAB PO SCH ×2 (13:40→17:00)
[2018-02-25] MEDS: traMADol HCL 50 MG TAB PO PRN (19:59)
[2018-02-25] MEDS: ATORVASTATIN 20 MG TAB PO SCH (20:00)
[2018-02-26] VITALS: BP 145/66; PULSE 93; RESP 19; TEMP 98.1; O2SAT 99
[2018-02-26] MEDS: traMADol HCL 50 MG TAB PO PRN ×2 (01:39→14:15)
[2018-02-26 04:00] VITALS: BP 107/69; PULSE 79; RESP 19; TEMP 97.9; O2SAT 98
[2018-02-26 05:15] LABS: AUTOMATED NEUTROPHIL # 7.5 TH/MM3 (1.8-7.7); BASOPHIL % 0.3 % (0.0-2.0); EOSINOPHIL # 0.1 TH/MM3 (0-0.4); EOSINOPHIL % 0.7 % (0.0-4.0); HEMOGLOBIN 10.3 GM/DL (11.6-15.3); LYMPH % 4.1 % (9.0-44.0); LYMPHOCYTE # 0.4 TH/MM3 (1.0-4.8); MEAN CELL VOLUME 87.1 FL (80.0-100.0); MEAN CORPUSCULAR HEMOGLOBIN 30.1 PG (27.0-34.0); MEAN CORPUSCULAR HGB CONC 34.5 % (32.0-36.0); MEAN PLATELET VOLUME 7.2 FL (7.0-11.0); MONO % 13.8 % (0.0-8.0); MONOCYTE # 1.3 TH/MM3 (0-0.9); NEUT % 81.1 % (16.0-70.0); PLATELET COUNT 219 TH/MM3 (150-450); RED BLOOD COUNT 3.44 MIL/MM3 (4.00-5.30); RED CELL DISTRIBUTION WIDTH 14.9 % (11.6-17.2); WHITE BLOOD COUNT 9.3 TH/MM3 (4.0-11.0)
[2018-02-26 05:37] LABS: BICARBONATE 24.2 MEQ/L (21.0-32.0); CALCIUM 8.5 MG/DL (8.5-10.1); CREATININE 0.92 MG/DL (0.50-1.00)
[2018-02-26] MEDS: LEVOTHYROXINE SODIUM 100 MCG TAB PO SCH (06:22)
[2018-02-26 08:00] VITALS: BP 138/72; PULSE 85; RESP 18; TEMP 97.8; O2SAT 97
[2018-02-26] MEDS: METOCLOPRAMIDE HCL 10 MG TAB PO SCH (08:48)
[2018-02-26] MEDS: HYDROXYCHLOROQUINE SULFATE 200 MG TAB PO SCH (08:48)
[2018-02-26] MEDS: PANTOPRAZOLE SOD 40 MG DELAYED RELEASE TAB PO SCH (08:48)
[2018-02-26] MEDS: predniSONE 5 MG TAB PO SCH (08:48)
[2018-02-26] MEDS: ASPIRIN EC 81 MG TABEC PO SCH (08:48)
[2018-02-26] MEDS: MULTIVITAMIN TAB PO SCH (08:48)
[2018-02-26] MEDS: medroxyPROGESTERone ACETATE 10 MG TAB PO SCH (08:49)
[2018-02-26] MEDS: POLYETHYLENE GLYCOL 17 GM PKG PO SCH (08:52)
[2018-02-26] MEDS: LACTATED RINGER'S 1000 ML INJ 1,000 ML IV SCH (08:53)
--- NOTE | 2018-02-26 10:08 | HHI.PR ---
Subjective Remarks Patient reports no complaints. Overall pain control. Prefers to go to [facility]. Eating well. Objective Vitals Vital Signs Date Time Temp Pulse Resp B/P (MAP) Pulse Ox O2 Delivery O2 Flow Rate FiO2 02/26/18 08:52 20 02/26/18 08:00 97.8 85 18 138/72 (94) 97 02/26/18 04:00 97.9 79 19 107/69 (82) 98 02/26/18 00:00 98.1 93 19 145/66 (92) 99 02/25/18 20:00 98.0 82 18 132/65 (87) 99 02/25/18 17:08 98.7 80 18 98/54 98 02/25/18 16:53 98.9 75 18 108/59 98 02/25/18 16:13 98.6 88 18 108/55 98 02/25/18 16:00 97.9 87 17 119/63 (81) 100 02/25/18 13:15 98.0 94 18 141/64 99 02/25/18 12:54 97.6 89 17 143/68 100 02/25/18 12:00 97.6 89 17 143/68 (93) 100 I/O 02/25/18 02/25/18 02/25/18 02/26/18 02/26/18 02/26/18 06:59 14:59 22:59 06:59 14:59 22:59 Intake Total 480 ml 1285 ml 900 ml Balance 480 ml 1285 ml 900 ml Intake Oral 480 ml 480 ml 900 ml Packed Cells 800 ml Blood Product IV Normal Saline Flush 5 ml # Voids 3 5 4 # Bowel Movements 0 2 Result Diagram: 02/26/18 0437 02/26/18 0437 Objective Remarks GENERAL: This is a well-nourished, well-developed patient, in no apparent distress. CARDIOVASCULAR: Regular rate and rhythm RESPIRATORY: Clear to auscultation. Breath sounds equal bilaterally. No wheezes , rales, or rhonchi. MUSCULOSKELETAL: Extremities without clubbing, cyanosis, or edema. right knee bandage c/d/i NEURO: Alert & Oriented x4 to person, place, time, situation. Procedures 02/23/18 right total knee arthroplasty with Dr. Emeterio Garrido A/P Problem List: (1) Osteoarthritis of right knee ICD Code: M17.11 - Unilateral primary osteoarthritis, right knee Assessment and Plan 67-year-old female status post right knee arthroplasty. Osteoarthritis status post op day # 3 right total knee arthroplasty (surgery done on 02/[address] Emeterio Garrido). Continue pain control with Tramadol prn Continue Physical therapy DVT prophylaxis per ortho who ordered aspirin 81mg bid Acute on chronic anemia due to acute blood loss from surgery: Patient reports long history of chronic anemia. Drop likely secondary to blood loss from surgery. Patient had iron studies in 2008 indicating chronic iron deficiency. Started on ferrous sulfate bid Hgb dropped yesterday to 6.6 s/p 2u pRBC transfusion with repeat hemoglobin 10.3. Stable. Hypertension, essential chronic Continue home medications including lisinopril 20mg daily, overall controlled. Hypothyroidism -continue Synthroid. history of endometrial cancer Chronic, stable. Continue outpatient f/up. History of gastroparesisresume home Reglan History of Raynaud's disease and Sjogrens Disease Lupus Follow clinically for any exacerbations Restart home meds, prednisone and Plaquenil. DVT prophylaxis Per orthopedics recommendations Discharge Planning Patient prefers [facility]. Anticipate halfway facility discharge. Problem Qualifiers (1) Osteoarthritis of right knee: Qualified Codes: M17.11 - Unilateral primary osteoarthritis, right knee Johanna Azul MD February 26, 2018 10:08
[2018-02-26 12:00] VITALS: BP 137/80; PULSE 90; RESP 18; TEMP 98.4; O2SAT 99
--- NOTE | 2018-02-26 13:26 | PD.ORT.PN ---
Subjective Subjective Remarks POD # 3 R TKR C/O post op pain No sob;no chest pain Patient ready to go to rehab today Objective Vitals Vital Signs Date Time Temp Pulse Resp B/P (MAP) Pulse Ox O2 Delivery O2 Flow Rate FiO2 02/26/18 08:52 20 02/26/18 08:00 97.8 85 18 138/72 (94) 97 02/26/18 04:00 97.9 79 19 107/69 (82) 98 02/26/18 00:00 98.1 93 19 145/66 (92) 99 02/25/18 20:00 98.0 82 18 132/65 (87) 99 02/25/18 17:08 98.7 80 18 98/54 98 02/25/18 16:53 98.9 75 18 108/59 98 02/25/18 16:13 98.6 88 18 108/55 98 02/25/18 16:00 97.9 87 17 119/63 (81) 100 I/O 02/25/18 02/25/18 02/25/18 02/26/18 02/26/18 02/26/18 07:00 15:00 23:00 07:00 15:00 23:00 Intake Total 480 ml 1285 ml 900 ml Balance 480 ml 1285 ml 900 ml Intake Oral 480 ml 480 ml 900 ml Packed Cells 800 ml Blood Product IV Normal Saline Flush 5 ml # Voids 3 5 4 # Bowel Movements 0 2 Result Diagram: 02/26/18 0437 02/26/18 0437 Imaging Last 24 hours Impressions Knee X-Ray 02/23/18 1535 Signed Impressions: Service Date/Time: Friday, February 23, 2018 16:00 - CONCLUSION: Good placement of a total knee prosthesis. Arie Singer MD Objective Remarks right knee dressing dry and intact N/V intact No calf tenderness;neg handy's Assessment & Plan Assessment and Plan POD # 3 s/p R TKA Ortho stable PT/Rehab Milk of magnesia and glycerin supp written for patient Aspirin EC 81 mg BID x 4 weeks for DVT/PE prophylaxsis D/C to SNF today for continued rehab Emeterio Garrido MD February 26, 2018 13:26
[2018-02-26] MEDS: FERROUS SULFATE 325 MG (65 MG ELEMENTAL IRON) TAB PO SCH (14:13)
== END 2018-02-26 18:08 | DRG 470 ==
LOC: HSDI 02-23 10:03 → N06A 02-23 19:26
PROVIDERS: ADMIT Orthopaedic Surgery Orthopaedic Surgery of the Spine; ATTEND Orthopaedic Surgery Orthopaedic Surgery of the Spine
PROC: 3E0T3BZ Introduction of Anesthetic Agent into Peripheral Nerves and Plexi, Percutaneous Approach (ICD-10-PCS; 2018-02-23)
PROC: 30233N1 Transfusion of Nonautologous Red Blood Cells into Peripheral Vein, Percutaneous Approach (ICD-10-PCS; 2018-02-23)
PROC: 0SRC0J9 Replacement of Right Knee Joint with Synthetic Substitute, Cemented, Open Approach (ICD-10-PCS; principal; 2018-02-23 13:21)
DX: M17.11 Unilateral primary osteoarthritis, right knee (principal); D62 Acute posthemorrhagic anemia; I10 Essential (primary) hypertension; K31.84 Gastroparesis; E03.9 Hypothyroidism, unspecified; M11.261 Other chondrocalcinosis, right knee; M21.161 Varus deformity, not elsewhere classified, right knee; Z85.42 Personal history of malignant neoplasm of other parts of uterus; M19.90 Unspecified osteoarthritis, unspecified site; I73.00 Raynaud's syndrome without gangrene; I83.90 Asymptomatic varicose veins of unspecified lower extremity; M35.00 Sjogren syndrome, unspecified; K59.00 Constipation, unspecified; Z79.899 Other long term (current) drug therapy
CPT/HCPCS: 36415; 36430; 73560; 80048; 82607; 82728; 82746; 83540; 83550; 85014; 85018; 85025; 86850; 86900; 86901; 86920; 94150; C1776; C9290; J0330; J0690; J0735; J1100; J1580; J1885; J2250; J2405; J2795; J3010; J3370; J7050; J7120; J7512; J8501; L1830; P9016

== ENCOUNTER → 2018-02-16 | Outpatient (CLI) | payer BC ==
[~2018-02-16] MED LIST changes: +ASPI81TA23 PO
== END ==
LOC: CPRE 09:01
PROVIDERS: ATTEND Orthopaedic Surgery Orthopaedic Surgery of the Spine
DX: M17.11 Unilateral primary osteoarthritis, right knee (principal)

== ENCOUNTER 2018-03-29 08:44 | Emergency (ER) | payer BC, MEDICARE ==
[~2018-03-29] VITALS: Ht 149.9 cm; Wt 75.0 kg
[~2018-03-29 08:44] MED LIST changes: +ASPI81TA23 PO; +WALKER WHEELS/F1 MIS
[2018-03-29 08:46] VITALS: BP 152/81; PULSE 114; RESP 16; TEMP 98; O2SAT 95
[2018-03-29] MEDS ORDERED: SYNT112T PO (09:02)
[2018-03-29] MEDS ORDERED: SODIUM CHLOR 0.9% 1000 ML INJ 1,000 ML IV SCH (09:17)
--- NOTE | 2018-03-29 09:19 | PD ---
HPI Chief Complaint: Abdominal Pain Time Seen by Provider: 09:17 Travel History International Travel<30 days: No Contact w/Intl Traveler<30days: No Traveled to known affect area: No History of Present Illness HPI Patient comes in complaining of left lower quadrant abdominal pain, crampy, 8 out of 10, associated with diarrhea, has been ongoing for the past 10 days. No alleviating factors, aggravated by eating. Patient denies any associated factors such as fever, rash, headache, chest pain, flank pain, hematuria/urgency /dysuria/presently. Patient states allergy to hydrocodone morphine and oxycodone Past medical history significant for hypothyroid, adenoidectomy, full dentures, gastroparesis, hypertension, 1, rheumatoid arthritis, right knee arthroscopy, lupus, Sjogren's, rating on, anemia, endometrial CA history, PFSH Past Medical History Anemia: Yes Arthritis: Yes Autoimmune Disease: Yes (LUPUS, SOGJOURNS) Blood Disorders: No Anxiety: No Depression: No Heart Rhythm Problems: No Cancer: Yes (ENDOMETRIAL CA) Cardiovascular Problems: Yes ( MURMUR) High Cholesterol: No Congestive Heart Failure: No Diabetes: No Diminished Hearing: No Endocrine: No Gastrointestinal Disorders: Yes (GASTROPARESIS) GERD: Yes Genitourinary: No Hepatitis: No Hiatal Hernia: No Hypertension: Yes (BORDERLINE) Immune Disorder: Yes (LUPUS) Medical other: Yes (VARICOSE VEINS, RAYNAUDS, SJOGRENS DISEASE) Musculoskeletal: Yes (OA) Neurologic: No Psychiatric: No Reproductive: No Respiratory: No Myocardial Infarction: No Thyroid Disease: Yes Tetanus Vaccination: Never Vaccinated Influenza Vaccination: No ?: Not Menopausal: Yes Past Surgical History Abdominal Surgery: No AICD: No Cardiac Surgery: No Section: Yes (x1) Endocrine Surgery: No Eye Surgery: No Genitourinary Surgery: No Gynecologic Surgery: Yes ( 1985) Joint Replacement: No Oral Surgery: Yes (I/D NECK) Pacemaker: No Thoracic Surgery: No Tonsillectomy: Yes (ADENOIDECTOMY) Other Surgery: Yes Social History Alcohol Use: No Tobacco Use: No Substance Use: No Allergies-Medications (Allergen,Severity, Reaction): Coded Allergies: Fish Containing Products (Unverified Allergy, Severe, HIVES, 03/29/18) alcohol (Unverified Allergy, Severe, HIVES, 03/29/18) shellfish derived (Unverified Allergy, Severe, HIVES, 03/29/18) tetanus toxoid, adsorbed (Unverified Allergy, Mild, 03/29/18) hydrocodone (Verified Adverse Reaction, Severe, HALLUCINATIONS, 03/29/18) morphine (Verified Adverse Reaction, Intermediate, SEVERE NAUSEA, 03/29/18) oxycodone (Verified Adverse Reaction, Mild, VOMITING, 03/29/18) Uncoded Allergies: LIQUOR (Allergy, Severe, BODY TURNS RED, 02/16/18) Reported Meds & Prescriptions Reported Meds & Active Scripts Active Walker with Front Wheels (Device) 1 Mis Mis Ea .XX DIRECTED Aspirin EC (Aspirin) 81 Mg Tabdr 81 Mg PO BID 28 Days Tramadol (Tramadol HCl) 50 Mg Tab 50-100 Mg PO Q6H PRN Reported Synthroid (Levothyroxine Sodium) 112 Mcg Tab 112 Mcg PO DAILY Phenergan (Promethazine HCl) 25 Mg Tablet 25 Mg PO Q6H PRN Arthritis Pain Reliever ER 8 HR (Acetaminophen) 650 Mg Tab 650 Mg PO Q8HR PRN Theratears Unit-Dose Opth Drops (Carboxymethylcellulose Sodium Opth Drops) 0.25 % Soln 1 Drop EACH EYE Q4H PRN Pred Forte Opth 1% (Prednisolone Acetate Opth 1%) 1% Susp 1 Drop EACH EYE BID PRN [place] Opth Drops (Ketotifen Opth Drops) 0.025% Drops 1 Drop EACH EYE Q6H PRN Atorvastatin (Atorvastatin Calcium) 20 Mg Tab 20 Mg PO HS Folic Acid 1 Mg Tablet 1 Mg PO HS Methotrexate 2.5 Mg Tab 10 Mg PO FRIDAY Integra (Multi-Vit/Iron-B Comp-Vit C) 62.5-62.5-40-3 mg Cap 1 Cap PO DAILY Lisinopril 20 Mg Tab 20 Mg PO DAILY Provera (Medroxyprogesterone Acetate) 10 Mg Tab 20 Mg PO BID Start day 21 Omeprazole 40 Mg Cap 40 Mg PO DAILY Prednisone 2.5 Mg Tab 2.5 Mg PO DAILY Plaquenil (Hydroxychloroquine Sulfate) 200 Mg Tab 200 Mg PO BID Take with food Reglan (Metoclopramide HCl) 5 Mg Tab 5 Mg PO BID Review of Systems General / Constitutional: No: Fever Eyes: No: Visual changes HENT: No: Headaches Cardiovascular: No: Chest Pain or Discomfort Respiratory: No: Shortness of Breath Gastrointestinal: Positive: Diarrhea, Abdominal Pain Genitourinary: No: Dysuria Musculoskeletal: No: Pain Skin: No Rash Neurologic: No: Weakness Psychiatric: No: Depression Endocrine: No: Polydipsia Hematologic/Lymphatic: No: Easy Bruising Physical Exam Narrative GENERAL: SKIN: Warm and dry. HEAD: Atraumatic. Normocephalic. EYES: Pupils equal and round. No scleral icterus. No injection or drainage. ENT: No nasal bleeding or discharge. Mucous membranes pink and moist. NECK: Trachea midline. No JVD. CARDIOVASCULAR: Regular rate and rhythm. RESPIRATORY: No accessory muscle use. Clear to auscultation. Breath sounds equal bilaterally. GASTROINTESTINAL: Abdomen soft, mild tenderness to percussion to left lower quadrant , nondistended. MUSCULOSKELETAL: Extremities without clubbing, cyanosis, or edema. No obvious deformities. NEUROLOGICAL: Awake and alert. No obvious cranial nerve deficits. Motor grossly within normal limits. Five out of 5 muscle strength in the arms and legs. Normal speech. PSYCHIATRIC: Appropriate mood and affect; insight and judgment normal. Data Data Last Documented VS Vital Signs Date Time Temp Pulse Resp B/P (MAP) Pulse Ox O2 Delivery O2 Flow Rate FiO2 03/29/18 09:33 99 03/29/18 08:46 98.0 114 16 152/81 (104) Orders Orders Complete Blood Count With Diff (03/29/18 09:17) Comprehensive Metabolic Panel (03/29/18 09:17) Lipase (03/29/18 09:17) Lactic Acid (03/29/18 09:17) Urinalysis - C+S If Indicated (03/29/18 09:17) Ct Abd/Pel W/O Iv Contrast (03/29/18 09:17) Iv Access Insert/Monitor (03/29/18 09:17) Ecg Monitoring (03/29/18:17) Oximetry (03/29/18:17) NPO (03/29/18 09:17) Sodium Chlor 0.9% 1000 Ml Inj (Ns 1000 M (03/29/18 09:17) Sodium Chloride 0.9% Flush (Ns Flush) (03/29/18 09:30) Ondansetron Odt (Zofran Odt) (03/29/18 09:30) Labs Laboratory Tests Test 03/29/18 09:17 03/29/18 09:20 Urine Color YELLOW Urine Turbidity CLEAR Urine pH 6.0 Urine Specific [place] 1.007 Urine Protein TRACE mg/dL Urine Glucose (UA) NEG mg/dL Urine Ketones NEG mg/dL Urine Occult Blood NEG Urine Nitrite NEG Urine Bilirubin NEG Urine Urobilinogen LESS THAN 2.0 MG/DL Urine Leukocyte Esterase NEG Urine RBC 1 /hpf Urine WBC LESS THAN 1 /hpf Urine Mucus FEW /lpf Microscopic Urinalysis Comment CULT NOT INDICATED White Blood Count 13.6 TH/MM3 Red Blood Count 3.63 MIL/MM3 Hemoglobin 10.7 GM/DL Hematocrit 32.2 % Mean Corpuscular Volume 88.6 FL Mean Corpuscular Hemoglobin 29.5 PG Mean Corpuscular Hemoglobin Concent 33.3 % Red Cell Distribution Width 15.4 % Platelet Count 365 TH/MM3 Mean Platelet Volume 7.1 FL Neutrophils (%) (Auto) 87.2 % Lymphocytes (%) (Auto) 5.4 % Monocytes (%) (Auto) 6.0 % Eosinophils (%) (Auto) 1.1 % Basophils (%) (Auto) 0.3 % Neutrophils # (Auto) 11.8 TH/MM3 Lymphocytes # (Auto) 0.7 TH/MM3 Monocytes # (Auto) 0.8 TH/MM3 Eosinophils # (Auto) 0.2 TH/MM3 Basophils # (Auto) 0.0 TH/MM3 CBC Comment DIFF FINAL Differential Comment Blood Urea Nitrogen 13 MG/DL Creatinine 1.07 MG/DL Random Glucose 90 MG/DL Total Protein 6.5 GM/DL Albumin 3.2 GM/DL Calcium Level 9.1 MG/DL Alkaline Phosphatase 70 U/L Aspartate Amino Transf (AST/SGOT) 24 U/L Alanine Aminotransferase (ALT/SGPT) 20 U/L Total Bilirubin 0.5 MG/DL Sodium Level 135 MEQ/L Potassium Level 4.5 MEQ/L Chloride Level 105 MEQ/L Carbon Dioxide Level 19.4 MEQ/L Anion Gap 11 MEQ/L Estimat Glomerular Filtration Rate 51 ML/MIN Lactic Acid Level 0.8 mmol/L Lipase 172 U/L [facility] Medical Decision Making Medical Screen Exam Complete: Yes Emergency Medical Condition: Yes Medical Record Reviewed: Yes Differential Diagnosis Enteritis versus colitis versus diverticulitis versus kidney stones versus pyelonephritis Narrative Course CBC shows leukocytosis of 12 13,000 with 87% left shift neutrophilia, mild anemia of 10/32, normal platelet count, UA is negative for any UTI Electrolytes are all within normal limits, normal kidney liver and pancreatic functions. 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 Rosario Ruffin [employer] oncologist Diagnosis Primary Impression: Enteritis Additional Impression: Endometrial and ovarian malignancy Patient Instructions: Enteritis (ED), General Instructions Scripts Metronidazole (Flagyl) 500 Mg Tab 500 MG PO TID for Infection for 7 Days, #21 TAB 0 Refills Prov: Wallace Stevens MD 03/29/18 Disposition: 01 DISCHARGE HOME Condition: Stable Wallace Stevens MD Mar 29, 2018 09:19
[2018-03-29] MEDS ORDERED: MORPHINE SULFATE 4 MG/ML INJ IV PUSH ONE (09:30)
[2018-03-29] MEDS ORDERED: ONDANSETRON ODT 4 MG TAB PO ONE (09:30)
[2018-03-29] MEDS ORDERED: SODIUM CHLORIDE 0.9% FLUSH 10 ML FLUSH IV FLUSH PRN (09:30)
[2018-03-29 09:33] VITALS: O2SAT 99
[2018-03-29 09:42] LABS: AUTOMATED NEUTROPHIL # 11.8 TH/MM3 (1.8-7.7); BASOPHIL % 0.3 % (0.0-2.0); EOSINOPHIL # 0.2 TH/MM3 (0-0.4); EOSINOPHIL % 1.1 % (0.0-4.0); HEMATOCRIT 32.2 % (35.0-46.0); HEMOGLOBIN 10.7 GM/DL (11.6-15.3); LYMPH % 5.4 % (9.0-44.0); LYMPHOCYTE # 0.7 TH/MM3 (1.0-4.8); MEAN CELL VOLUME 88.6 FL (80.0-100.0); MEAN CORPUSCULAR HEMOGLOBIN 29.5 PG (27.0-34.0); MEAN CORPUSCULAR HGB CONC 33.3 % (32.0-36.0); MEAN PLATELET VOLUME 7.1 FL (7.0-11.0); MONOCYTE # 0.8 TH/MM3 (0-0.9); NEUT % 87.2 % (16.0-70.0); PLATELET COUNT 365 TH/MM3 (150-450); RED BLOOD COUNT 3.63 MIL/MM3 (4.00-5.30); RED CELL DISTRIBUTION WIDTH 15.4 % (11.6-17.2); WHITE BLOOD COUNT 13.6 TH/MM3 (4.0-11.0)
[2018-03-29 09:53] LABS: BILIRUBIN, URINE NEG (NEG); BLOOD, URINE NEG (NEG); GLUCOSE,URINE NEG (NEG); KETONE, URINE NEG (NEG); MUCUS URINE FEW /lpf (OCC); NITRITE,URINE NEG (NEG); URINE COLOR YELLOW (YELLW/STRAW); URINE LEUKOCYTE ESTERASE NEG (NEG)
[2018-03-29 09:57] LABS: ALBUMIN 3.2 GM/DL (3.4-5.0); AST (GOT) 24 U/L (15-37); BICARBONATE 19.4 MEQ/L (21.0-32.0); BLOOD UREA NITROGEN 13 MG/DL (7-18); CALCIUM 9.1 MG/DL (8.5-10.1); CHLORIDE 105 MEQ/L (98-107); CREATININE 1.07 MG/DL (0.50-1.00); GLOMERULAR FILTRATION RATE 51 ML/MIN (>89); GLUCOSE,RANDOM 90 MG/DL (74-106); SODIUM (NA) 135 MEQ/L (136-145)
--- NOTE | 2018-03-29 09:58 | RADRPT ---
EXAM DATE: 03/29/2018 9:49 AM EDT AGE/SEX: 67 years / Female INDICATIONS: Left lower quadrant pain with diarrhea. CLINICAL DATA: This is the patient's initial encounter. Patient reports that signs and symptoms have been present for 2 weeks and indicates a pain score of 6/10. MEDICAL/SURGICAL HISTORY: Hypertension. Lupus. Endometrial cancer None. RADIATION DOSE: 7.97 CTDI (mGy) COMPARISON: No prior exams available for comparison. TECHNIQUE: Multiple contiguous axial images were obtained through the abdomen. Images were obtained using multiple row detector helical technique. Using dose reduction techniques, radiation dose was ke pt as low as reasonably achievable to obtain optimal diagnostic quality images. FINDINGS: There are scattered cystic airspaces within the lung bases. No pleural or pericardial effusions are s een. The esophagus is dilated and fluid-filled. Liver, gallbladder, spleen, pancreas, adrenal glands, kidneys are unremarkable. There is a large mass seen within the pelvis measuring 12.5 x 7.1 cm in AP and transverse dimension. There is an additional soft tissue mass seen in the left lower quadrant ab utting the pelvic mass measuring 10.7 x 9.7 cm in transverse and AP dimension on axial image 57. Find ings are characteristic of the patient's known endometrial cancer with possible left ovarian malignan cy as well. There is a cyst associated with the right ovary measuring 2.1 cm. There are no pathologic ally enlarged lymph nodes. Scattered atherosclerotic calcifications are seen. Review of bone windows demonstrate degenerative changes of the spine. CONCLUSION: 1. Pelvic and left lower quadrant soft tissue masses are noted and would be consistent with the eloy ent's known endometrial carcinoma with probable left ovarian malignancy Electronically signed by: Melquiades Roberson MD 03/29/2018 9:57 AM EDT
[2018-03-29 09:59] LABS: ALT (GPT) 20 U/L (10-53)
[2018-03-29 10:01] LABS: ALKALINE PHOSPHATASE 70 U/L (45-117); TOTAL BILIRUBIN ADULT 0.5 MG/DL (0.2-1.0); TOTAL PROTEIN 6.5 GM/DL (6.4-8.2)
[2018-03-29] MEDS ORDERED: METR-1 PO (11:14)
[2018-03-29] MEDS ORDERED: metroNIDAZOLE 500 MG TAB PO ONE (11:15)
[2018-03-29 11:34] VITALS: BP 142/74
== END 2018-03-29 11:42 | disposition home or self-care (01) ==
LOC: NEPE 08:44
DX: K52.9 Noninfective gastroenteritis and colitis, unspecified (principal); C56.9 Malignant neoplasm of unspecified ovary; C54.1 Malignant neoplasm of endometrium; D64.9 Anemia, unspecified; M32.9 Systemic lupus erythematosus, unspecified; K31.84 Gastroparesis; I10 Essential (primary) hypertension; I73.00 Raynaud's syndrome without gangrene; M06.9 Rheumatoid arthritis, unspecified
CPT/HCPCS: 74176; 80053; 81001; 83605; 83690; 85025; 96360; 96361; 99284; J7030

== ENCOUNTER 2018-04-09 14:58 | Emergency (ER) | payer BC ==
[~2018-04-09] VITALS: Ht 149.9 cm; Wt 80.0 kg
[~2018-04-09 14:58] MED LIST changes: -LEVO.1 PO; +METR-1 PO; +SYNT112T PO
[2018-04-09 15:17] VITALS: BP 132/64; PULSE 108; RESP 17; TEMP 98.4; O2SAT 95
[2018-04-09] MEDS ORDERED: HYDROmorphone HCL PF 2 MG/ML VIAL IV PUSH ONE (16:15)
[2018-04-09] MEDS ORDERED: PROCHLORPERAZINE INJ 10 MG/2 ML VIAL IV PUSH ONE (16:15)
[2018-04-09] MEDS ORDERED: diphenhydrAMINE HCL 50 MG/ML VIAL IV PUSH ONE (16:15)
[2018-04-09] MEDS ORDERED: ZOFR4TAB PO (16:49)
[2018-04-09] MEDS ORDERED: DILA2TAB4 PO (16:49)
--- NOTE | 2018-04-09 16:49 | PD ---
HPI . Abdominal pain Chief Complaint: Abdominal Pain Time Seen by Provider: 15:54 Travel History International Travel<30 days: No Contact w/Intl Traveler<30days: No Traveled to known affect area: No History of Present Illness HPI This patient presents with a chief complaint of left lower quadrant abdominal pain. She reports intermittent lower abdominal pain for couple of weeks. The pain has become persistent for the last 2 days. She states that the pain is severe and rates it 10/10. Pain is aggravated by urination and defecation. Pain is relieved by lying down. This patient had a recent CT done here which showed endometrial cancer which has probably spread to the left ovary. She has not yet seen the gynecological oncologist. She states that she has an appointment on May 01. She takes tramadol at home for pain. Tramadol has not been controlling this pain. PFSH Past Medical History Hx Anticoagulant Therapy: No Anemia: Yes Arthritis: Yes Autoimmune Disease: Yes (LUPUS, SOGJOURNS) Blood Disorders: No Anxiety: No Depression: No Heart Rhythm Problems: No Cancer: Yes (ENDOMETRIAL CA) Cardiovascular Problems: Yes ( MURMUR) High Cholesterol: No Congestive Heart Failure: No Diabetes: No Diminished Hearing: No Endocrine: No Gastrointestinal Disorders: Yes (GASTROPARESIS) GERD: Yes Genitourinary: No Hepatitis: No Hiatal Hernia: No Hypertension: Yes (BORDERLINE) Immune Disorder: Yes (LUPUS) Medical other: Yes (VARICOSE VEINS, RAYNAUDS, SJOGRENS DISEASE) Musculoskeletal: Yes (OA) Neurologic: No Psychiatric: No Reproductive: No Respiratory: No Myocardial Infarction: No Thyroid Disease: Yes Menopausal: Yes Past Surgical History Abdominal Surgery: No AICD: No Cardiac Surgery: No Section: Yes (x1) Endocrine Surgery: No Eye Surgery: No Genitourinary Surgery: No Gynecologic Surgery: Yes ( 1985) Joint Replacement: No Oral Surgery: Yes (I/D NECK) Pacemaker: No Thoracic Surgery: No Tonsillectomy: Yes (ADENOIDECTOMY) Other Surgery: Yes Social History Alcohol Use: No Tobacco Use: No Substance Use: No Allergies-Medications (Allergen,Severity, Reaction): Coded Allergies: Fish Containing Products (Unverified Allergy, Severe, HIVES, 04/09/18) alcohol (Unverified Allergy, Severe, HIVES, 04/09/18) shellfish derived (Unverified Allergy, Severe, HIVES, 04/09/18) tetanus toxoid, adsorbed (Unverified Allergy, Mild, 04/09/18) hydrocodone (Verified Adverse Reaction, Severe, HALLUCINATIONS, 04/09/18) morphine (Verified Adverse Reaction, Intermediate, SEVERE NAUSEA, 04/09/18) oxycodone (Verified Adverse Reaction, Mild, VOMITING, 04/09/18) Uncoded Allergies: LIQUOR (Allergy, Severe, BODY TURNS RED, 02/16/18) Reported Meds & Prescriptions Reported Meds & Active Scripts Active Walker with Front Wheels (Device) 1 Mis Mis Ea .XX DIRECTED Tramadol (Tramadol HCl) 50 Mg Tab 50-100 Mg PO Q6H PRN Reported Synthroid (Levothyroxine Sodium) 112 Mcg Tab 112 Mcg PO DAILY Phenergan (Promethazine HCl) 25 Mg Tablet 25 Mg PO Q6H PRN Theratears Unit-Dose Opth Drops (Carboxymethylcellulose Sodium Opth Drops) 0.25 % Soln 1 Drop EACH EYE Q4H PRN Pred Forte Opth 1% (Prednisolone Acetate Opth 1%) 1% Susp 1 Drop EACH EYE BID PRN [place] Opth Drops (Ketotifen Opth Drops) 0.025% Drops 1 Drop EACH EYE Q6H PRN Atorvastatin (Atorvastatin Calcium) 20 Mg Tab 20 Mg PO HS Folic Acid 1 Mg Tablet 1 Mg PO HS Methotrexate 2.5 Mg Tab 10 Mg PO FRIDAY Integra (Multi-Vit/Iron-B Comp-Vit C) 62.5-62.5-40-3 mg Cap 1 Cap PO DAILY Lisinopril 20 Mg Tab 20 Mg PO DAILY Provera (Medroxyprogesterone Acetate) 10 Mg Tab 20 Mg PO BID Start day 21 Omeprazole 40 Mg Cap 40 Mg PO DAILY Prednisone 2.5 Mg Tab 2.5 Mg PO DAILY Plaquenil (Hydroxychloroquine Sulfate) 200 Mg Tab 200 Mg PO BID Take with food Reglan (Metoclopramide HCl) 5 Mg Tab 5 Mg PO BID Review of Systems Except as stated in HPI: all other systems reviewed are Neg Physical Exam Narrative GENERAL: She looks like she is in pain. SKIN: warm/dry. HEAD: Normocephalic. Atraumatic. EYES: Pupils equal and round. Extraocular movements are intact. ENT: Mucous membranes pink and moist. NECK: Supple. Full range of motion without pain.. CARDIOVASCULAR: Regular rate and rhythm. RESPIRATORY: No accessory muscle use. GASTROINTESTINAL: Abdomen soft. Left lower quadrant tenderness. Bowel sounds present. Nondistended. MUSCULOSKELETAL: No obvious deformities. Normal muscle tone. NEUROLOGICAL: Awake and alert. No obvious cranial nerve deficits. Motor grossly within normal limits. Normal speech. PSYCHIATRIC: Appropriate mood and affect; insight and judgment normal. Data Data Last Documented VS Vital Signs Date Time Temp Pulse Resp B/P (MAP) Pulse Ox O2 Delivery O2 Flow Rate FiO2 04/09/18 15:57 20 04/09/18 15:17 98.4 108 132/64 (86) 95 Orders Orders Diphenhydramine Inj (Benadryl Inj) (04/09/18 16:15) Prochlorperazine Inj (Compazine Inj) (04/09/18 16:15) Hydromorphone Pf Inj (Dilaudid Pf Inj) (04/09/18 16:15) MDM Medical Decision Making Medical Screen Exam Complete: Yes Emergency Medical Condition: Yes Medical Record Reviewed: Yes (Patient was seen here on 03/29 with the same complaint. She had a complete workup at that time including a CT. Please see her HPI for results of the CT.) Differential Diagnosis Differential diagnosis of abdominal pain includes but is not limited to gastritis, pancreatitis, hepatitis, gastroenteritis, constipation, urinary retention, peptic ulcer disease, diverticulitis or appendicitis Narrative Course This patient presents with left lower quadrant abdominal pain. She was recently diagnosed with endometrial cancer which has probably spread to the left ovary. The patient reports adverse reactions to opiates. Specifically, she develops nausea and altered mental status. I gave her Compazine and Benadryl followed by Dilaudid 1 mg IV. The patient reports adequate relief of her pain with this treatment. I will discharge her to home with a prescription for Dilaudid. She has endometrial cancer and has not yet been able to see the gynecological oncologist. I will give her enough Dilaudid to get her through until that appointment on May 01. Diagnosis Primary Impression: Abdominal pain Qualified Codes: R10.32 - Left lower quadrant pain Additional Impression: Endometrial cancer Patient Instructions: General Instructions, Nonpharmacological Management of Cancer Pain (DC), Pharmacological Management of Cancer Pain (DC) Med/Other Pt SpecificInfo: Prescription(s) given Scripts Ondansetron (Zofran) 4 Mg Tab 4 MG PO Q6HR Y for NAUSEA OR VOMITING, #90 TAB 0 Refills Prov: Cristina Egan MD 04/09/18 Hydromorphone (Dilaudid) 2 Mg Tab 2 MG PO Q6H Y for Pain Management, #90 TAB 0 Refills Prov: Cristina Egan MD 04/09/18 Disposition: 01 DISCHARGE HOME Condition: Stable Cristina Egan MD Apr 09, 2018 16:49
== END 2018-04-09 19:27 | disposition home or self-care (01) ==
LOC: NEPE 14:58
DX: R10.32 Left lower quadrant pain (principal); C54.1 Malignant neoplasm of endometrium; D64.9 Anemia, unspecified; M19.90 Unspecified osteoarthritis, unspecified site; M32.9 Systemic lupus erythematosus, unspecified; R01.1 Cardiac murmur, unspecified; K21.9 Gastro-esophageal reflux disease without esophagitis; I10 Essential (primary) hypertension; I73.00 Raynaud's syndrome without gangrene; M35.00 Sjogren syndrome, unspecified; E07.9 Disorder of thyroid, unspecified; Z79.899 Other long term (current) drug therapy; Z87.19 Personal history of other diseases of the digestive system; Z88.5 Allergy status to narcotic agent
CPT/HCPCS: 96374; 96375; 99284; J0780; J1170; J1200